=== PATIENT | female | born 1980 | race Two or more races ===

== ENCOUNTER 2016-06-10 13:53 | Emergency (ER) | payer SELFPAY ==
[2016-06-10 14:13] VITALS: TEMP 98.8; BMI 32.4
[2016-06-10 14:55] LABS: AUTOMATED BASOPHIL 0.2 % (0-2); AUTOMATED EOSINOPHIL 1.3 % (0-5); AUTOMATED LYMPH 6.8 % (17-44); AUTOMATED MONOCYTE 3.6 % (3-10); AUTOMATED NEUTROPHIL 88.1 % (45-76); MPV 10.7 fL (7.4-10.4)
[2016-06-10 15:13] LABS: BLOOD UREA NITROGEN 13 MG/DL (7-17); CALCIUM 9.5 MG/DL (8.4-10.2); CALCULATED OSMOLALITY 270 MOs/Kg (270-290); CHLORIDE 102 mEq/L (98-107); GLUCOSE 83 MG/DL (70-99); SODIUM LEVEL 141 mEq/L (137-146); TOTAL PROTEIN 8.3 G/DL (6.3-8.2)
[2016-06-10] MEDS ORDERED: ONDANSETRON HCL 4 MG/2 ML VIAL IV ONE (15:35)
[2016-06-10] MEDS ORDERED: NS 1,000 ML IV ONE (15:35)
[2016-06-10] MEDS ORDERED: HYDROmorphone 1 MG INJECTION IV ONE ×3 (15:35→16:45)
--- NOTE | 2016-06-10 15:38 | EDPRACDOC ---
- General Information Chief Complaint: Abdominal Pain Stated Complaint: VOMITING ABD PAIN Time Seen by Provider: 06/10/16 15:31 Mode Of Arrival: Car Home Medications: Home Medications Ondansetron [Zofran Odt] 4 mg PO Q6H PRN #20 tab.rapdis 06/10/16 Oxycodone HCl/Acetaminophen [Percocet 5-325 mg Tablet] 1 each PO Q4 #20 tablet 06/10/16 Allergies/Adverse Reactions: Allergies Allergy/AdvReac Type Severity Reaction Status Date / Time No Known Allergies Allergy Verified 06/10/16 14:13 - History of Present Illness Onset: GYNECOLOGICAL ASSISTANT HPI: PATIENT PRESENTS C/O EPIGASTRIC AND RUQ ABDOMINAL PAIN SINCE YESTERDAY. NAUSEA AND VOMITING. MINIMAL DIARRHEA. PAIN RADIATES AROUND RIGHT SIDE INTO BACK. NO FEVER. HX OF . NO FOOD TODAY Pain Location: Reports: Epigastric, RUQ Pain Severity: Moderate Pain Quality: Reports: Colicky, Sharp Pain Radiation: Reports: Back Last Menstrual Period: 04/16/2016 : No Adult Abdominal History: Reports: Abdominal Surgery. Denies: Urolithiasis, Bowel Obstruction Female Abdominal History: Denies: UTI, Ectopic, PID, Urolithiasis Female Associated Signs & Symptoms: Reports: Nausea, Vomiting Oral Intake: Decreased Urinary Output: Normal ED Past Medical History - History Reviewed Yes Nurses notes reviewed and agree except as marked Travel Outside of [place] in the Last 3 Months?: No - Patient Medical History GI/ History: Denies: Urinary Tract Infection Surgical History: Reports: Other (D&C, ) - Social Medical History Smoking Status: Never smoker ETOH: None Substance Abuse: None Lives With: Family Lives In: Home EDM Review of Systems - Review of Systems ROS Negative Except as Marked: Yes All systems reviewed and were negative except as marked Constitutional: No Symptoms Reported. negative: Fever, Chills, Weakness, Fatigue, Loss of Appetite Eyes: No Symptoms Reported. negative: Redness, Blurred Vision, Double Vision, Discharge, Pain, Light Sensitive, Photophobia Ears: No Symptoms Reported. negative: Pain, Hearing Loss, Drainage, Ear Pulling Throat: No Symptoms Reported. negative: Pain, Swelling Nose: No Symptoms Reported. negative: Congestion, Bleeding, Discharge, Injection, Swelling, Deformity, Ecchymosis, Tender, Abrasion, Laceration Mouth: No Symptoms Reported. negative: Pain, Drooling Respiratory: No Symptoms Reported. negative: Cough, Brassy Cough, Barky Cough, Shortness of Breath, Wheezing, Hemoptysis Cardiovascular: No Symptoms Reported. negative: Chest Pain, Palpitations, Syncope, Edema, Orthopnea, PND, Skin Mottling, Cyanosis Gastrointestinal: Nausea, Pain, Vomiting. negative: Constipation, Diarrhea, Formula Intolerance, Melena Genitourinary: No Symptoms Reported. negative: Dysuria, Hematuria, Frequency, Discharge, Bleeding, Testicular Pain, Neurological: No Symptoms Reported. negative: Headache, Dizziness, Seizure, Numbness, Weakness, Speech Difficulty, Gait Difficulty Musculoskeletal: No Symptoms Reported. negative: Neck, Chestwall, Ribs, Back, Shoulder, Arm, Elbow, Forearm, Wrist, Hand, Pelvis, Hip, Femur, Knee, Leg, Ankle , Foot Integumentary: No Symptoms Reported. negative: Itching, Rash, Bruising, Wound Allergic/Immunologic: No Symptoms Reported. negative: Hives, Itching Hematologic: No Symptoms Reported. negative: Lymphadenopathy, Easy Bruising, Easy Bleeding Endocrine: No Symptoms Reported. negative: Weight Gain, Weight Loss Psychiatric: No Symptoms Reported. negative: Anxiety, Depression, Hallucinations, Insomnia, Suicidal - Physical Exam Constitutional: Alert (Awake), Distress (MODERATE) Oriented to: Time, Person, Place Last recorded Vital Signs: Last Vital Signs Temp 98.8 F 06/10/16 14:10 Pulse 95 06/10/16 16:32 Resp 18 06/10/16 16:32 BP 151/80 06/10/16 16:32 Pulse Ox 96 06/10/16 16:32 Oxygen Pulse Oxygen Saturation 96 O2 Device Room Air Oxygen Flow Rate Fraction of Inspired Oxygen ( FIO2) - HEENT Head: Normal ( normocephalic) Eye Exam: Normal (PERRL, EOMI, Sclera white) Oropharynx: Normal (Pharynx:Moist without exudate,Gums-no swelling) Tympanic Membrane: Normal ENT EAC: Normal TMJ: Normal Nose: No Symptoms Reported (septum midline) Neck: Normal (FROM, trachea at midline) - Respiratory/Cardiovascular Respiratory: Normal - CTA (BBS clear to auscultation without adventitious sounds ) Cardiovascular: Normal (RRR without murmur, gallop or rub) - GI Auscultation: Normal (NABS) Palpation: Normal (Soft,No rebound or guarding, non distended) Tenderness: Moderate, Epigastric Spears's Sign: Negative - Musculoskeletal Back: Normal (Non-Tender) Extremities: Normal (Normal tone, Pulses 2+ No cyanosis or edema, FROM) - Integumentary Skin: Normal, Warm, Dry Lymphatics: Normal (no adenopathy) - Neurologic Memory Impaired: Normal Motor Function: Normal (Normal tone, Pulses 2+ No cyanosis or edema, FROM) Cranial Nerve: Normal (CN II-X11 intact sensation, strength 5/5) Cerebellar: Normal Mood Description: Normal Perception: Normal - Results 06/10/16 14:16 06/10/16 14:16 WBC 15.4 xk/uL (3.8-10.8) H 06/10/16 14:16 RBC 4.98 xM/uL (4.20-5.40) 06/10/16 14:16 Hgb 13.6 g/dL (12.0-16.0) 06/10/16 14:16 Hct 41.5 % (36-47) 06/10/16 14:16 MCV 83 fL (81-99) 06/10/16 14:16 MCH 27.2 pg (27-32) 06/10/16 14:16 MCHC 32.7 g/dl (33-36) L 06/10/16 14:16 RDW 14.0 % (11.5-14.5) 06/10/16 14:16 Plt Count 205 xk/uL (130-400) 06/10/16 14:16 MPV 10.7 fL (7.4-10.4) H 06/10/16 14:16 Neut % (Auto) 88.1 % (45-76) H 06/10/16 14:16 Lymph % (Auto) 6.8 % (17-44) L 06/10/16 14:16 [place] % (Auto) 3.6 % (3-10) 06/10/16 14:16 Eos % (Auto) 1.3 % (0-5) 06/10/16 14:16 Baso % (Auto) 0.2 % (0-2) 06/10/16 14:16 Absolute Neuts (auto) 13.55 xk/uL (1.7-8.2) H 06/10/16 14:16 Absolute Lymphs (auto) 0.92 xk/uL (0.65-4.75) 06/10/16 14:16 Sodium 141 mEq/L (137-146) 06/10/16 14:16 Potassium 4.5 mEq/L (3.5-5.1) 06/10/16 14:16 Chloride 102 mEq/L (98-107) 06/10/16 14:16 Carbon Dioxide 25 mMOL/L (22-33) 06/10/16 14:16 Anion Gap 19 mEq/L (8-16) H 06/10/16 14:16 BUN 13 MG/DL (7-17) 06/10/16 14:16 Creatinine 0.60 MG/DL (0.52-1.04) 06/10/16 14:16 Estimated GFR (MDRD) > 60 mL/min (>=60) 06/10/16 14:16 Glucose 83 MG/DL (70-99) 06/10/16 14:16 Calculated Osmolality 270 MOs/Kg (270-290) 06/10/16 14:16 Calcium 9.5 MG/DL (8.4-10.2) 06/10/16 14:16 Total Bilirubin 0.6 MG/DL (0.2-1.3) 06/10/16 14:16 AST 38 IU/L (14-36) H 06/10/16 14:16 ALT 72 IU/L (9-52) H 06/10/16 14:16 Alkaline Phosphatase 116 IU/L (38-126) 06/10/16 14:16 Total Protein 8.3 G/DL (6.3-8.2) H 06/10/16 14:16 Albumin 4.4 G/DL (3.5-5.0) 06/10/16 14:16 Lipase 33 U/L (23-300) 06/10/16 14:16 Urine Color Pale yellow 06/10/16 15:24 Urine Clarity Clear 06/10/16 15:24 Urine pH 5.0 (5.0-8.0) 06/10/16 15:24 Ur Specific [place] 1.015 (1.003-1.035) 06/10/16 15:24 Urine Protein Neg (NEG/TRACE) 06/10/16 15:24 Urine Glucose (UA) Neg (NEGATIVE) 06/10/16 15:24 Urine Ketones Neg (NEGATIVE) 06/10/16 15:24 Urine Occult Blood 2+ (NEG/TRACE) H 06/10/16 15:24 Urine Nitrite Neg (NEGATIVE) 06/10/16 15:24 Urine Bilirubin Neg (NEGATIVE) 06/10/16 15:24 Urine Urobilinogen <2.0 MG/DL (0-1) 06/10/16 15:24 Ur Leukocyte Esterase 1+ (NEGATIVE) H 06/10/16 15:24 Urine RBC 0-2 (0-5) 06/10/16 15:24 Urine WBC 2-5 (0-5) 06/10/16 15:24 Ur Epithelial Cells 1+ 06/10/16 15:24 Urine Bacteria 1+ (NEG/FEW) H 06/10/16 15:24 Hyaline Casts 0-2 (0-2) 06/10/16 15:24 Urine Mucus Occ (NEG/OCC) 06/10/16 15:24 Urine Test Neg (NEGATIVE) 06/10/16 15:26 Lab Results 06/10/16 06/10/16 06/10/16 15:26 15:24 14:16 WBC 15.4 H RBC 4.98 Hgb 13.6 Hct 41.5 MCV 83 MCH 27.2 MCHC 32.7 L RDW 14.0 Plt Count 205 MPV 10.7 H Neut % (Auto) 88.1 H Lymph % (Auto) 6.8 L [place] % (Auto) 3.6 Eos % (Auto) 1.3 Baso % (Auto) 0.2 Absolute Neuts (auto) 13.55 H Absolute Lymphs (auto) 0.92 Sodium Potassium Chloride Carbon Dioxide Anion Gap BUN Creatinine Estimated GFR (MDRD) Glucose Calculated Osmolality Calcium Total Bilirubin AST ALT Alkaline Phosphatase Total Protein Albumin Lipase Urine Color Pale yellow Urine Clarity Clear Urine pH 5.0 Ur Specific [place] 1.015 Urine Protein Neg Urine Glucose (UA) Neg Urine Ketones Neg Urine Occult Blood 2+ H Urine Nitrite Neg Urine Bilirubin Neg Urine Urobilinogen <2.0 Ur Leukocyte Esterase 1+ H Urine RBC 0-2 Urine WBC 2-5 Ur Epithelial Cells 1+ Urine Bacteria 1+ H Hyaline Casts 0-2 Urine Mucus Occ Urine Test Neg 06/10/16 14:16 WBC RBC Hgb Hct MCV MCH MCHC RDW Plt Count MPV Neut % (Auto) Lymph % (Auto) [place] % (Auto) Eos % (Auto) Baso % (Auto) Absolute Neuts (auto) Absolute Lymphs (auto) Sodium 141 Potassium 4.5 Chloride 102 Carbon Dioxide 25 Anion Gap 19 H BUN 13 Creatinine 0.60 Estimated GFR (MDRD) > 60 Glucose 83 Calculated Osmolality 270 Calcium 9.5 Total Bilirubin 0.6 AST 38 H ALT 72 H Alkaline Phosphatase 116 Total Protein 8.3 H Albumin 4.4 Lipase 33 Urine Color Urine Clarity Urine pH Ur Specific [place] Urine Protein Urine Glucose (UA) Urine Ketones Urine Occult Blood Urine Nitrite Urine Bilirubin Urine Urobilinogen Ur Leukocyte Esterase Urine RBC Urine WBC Ur Epithelial Cells Urine Bacteria Hyaline Casts Urine Mucus Urine Test Decision Time to Discharge: 17:52 - Departure Yes I personally saw and evaluated the patient. Disposition: Home Condition: Good Final Diagnosis: Biliary colic Abdominal pain Qualifiers: Abdominal location: right upper quadrant Qualified Code(s): R10.11 - Right upper quadrant pain Instructions: Non-pharmacological Pain Management Therapies for Adults (GEN), Abdominal Pain (ED), Biliary Colic (ED) Education/Counseling Given To: Patient Education/Counseling Given Regarding: Diagnosis, Treatment, Prognosis, Follow Up Referrals: Lucy Rodriguez MD [Primary Care Provider] - One Week Prescriptions: New Oxycodone HCl/Acetaminophen [Percocet 5-325 mg Tablet] 1 each PO Q4 #20 tablet Ondansetron [Zofran Odt] 4 mg PO Q6H PRN #20 tab.rapdis PRN Reason: Nausea/Vomiting
[2016-06-10 15:44] LABS: LEUKOCYTES/URINE 1+ (NEGATIVE); NITRITE/URINE NEG (NEGATIVE); RBC/URINE 0-2 (0-5); URINE OCCULT BLOOD 2+ (NEG/TRACE)
--- NOTE | 2016-06-10 16:21 | DIRPT ---
CLINICAL DATA: Abdominal pain radiating to the back over the past 2 days. EXAM: US ABDOMEN LIMITED - RIGHT UPPER QUADRANT COMPARISON: 11/30/2014 FINDINGS: Gallbladder: No gallstones or wall thickening visualized. The patient is exquisitely tender to palpation over the gallbladder (sonographic Spears's sign present). No para cholecystic fluid observed. Common bile duct: Diameter: 4 mm Liver: Diffusely echogenic liver compatible with diffuse hepatic steatosis. IMPRESSION: 1. Sonographic Spears's sign is present. However, no gallstones, gallbladder wall thickening, or pericholecystic fluid is identified. Correlate clinically in assessing for cholecystitis. 2. Coarse echogenic liver with poor sonic penetration compatible with diffuse hepatic steatosis. Electronically Signed By: Cecilio Berrios M.D. On: 06/10/2016 16:18
[2016-06-10] MEDS ORDERED: Pharmacy Review for Metformin - IV Contrast Given SCH (17:00)
--- NOTE | 2016-06-10 17:32 | DIRPT ---
CLINICAL DATA: Generalized abdominal pain for 1 day. nausea and vomiting. Leukocytosis. Recent urinary tract infection. EXAM: CT ABDOMEN AND PELVIS WITH CONTRAST TECHNIQUE: Multidetector CT imaging of the abdomen and pelvis was performed using the standard protocol following bolus administration of intravenous contrast. CONTRAST: 100 mL Isovue 370 COMPARISON: 11/30/2014 FINDINGS: Lower chest: No acute findings. Hepatobiliary: Diffuse hepatic steatosis again demonstrated. No liver masses identified. Gallbladder is unremarkable. Pancreas: No mass, inflammatory changes, or other significant abnormality. Spleen: Within normal limits in size and appearance. Adrenals/Urinary Tract: 1.3 cm fat attenuation left adrenal mass is stable and consistent with a benign myelolipoma. Right adrenal gland is normal in appearance. Sub-cm cyst in upper pole of left kidney is stable. No evidence of renal masses or hydronephrosis. No evidence of ureteral calculi or dilatation. Stomach/Bowel: No evidence of obstruction, inflammatory process, or abnormal fluid collections. Normal appendix visualized. Vascular/Lymphatic: No pathologically enlarged lymph nodes. No evidence of abdominal aortic aneurysm. Reproductive: No mass or other significant abnormality. Other: None. Musculoskeletal: No suspicious bone lesions identified. IMPRESSION: No acute findings within the abdomen or pelvis. Stable diffuse hepatic steatosis and tiny benign left adrenal myelolipoma. Electronically Signed By: Rigo Oleary M.D. On: 06/10/2016 17:30
[2016-06-10] MEDS ORDERED: PROMETHAZINE 25 MG/ML VIAL IV ONE (17:58)
[2016-06-10 18:30] VITALS: BP 137/67; PULSE 86
== END 2016-06-10 18:30 | disposition home or self-care (01) ==
LOC: ED 13:53
DX: K80.50 Calculus of bile duct without cholangitis or cholecystitis without obstruction (principal)
CPT/HCPCS: 36415; 74177; 76705; 80053; 81001; 81025; 83690; 85025; 96361; 96374; 96375; 96376; 99284; A9698; J1170; J2405; J2550